=== PATIENT | male | born 2000 | race Hispanic/Latino ===

== ENCOUNTER 2023-04-18 23:13 | Emergency (ER) | payer SELFPAY ==
[~2023-04-18] VITALS: Ht 167.6 cm; Wt 142.4 kg
[~2023-04-18 23:13] MED LIST: CIPRO500 MG PO; METRONIDAZOLE500 MG PO; ONDANSETRON ODT4 MG SL
[2023-04-18] MEDS ORDERED: VENTOLIN HFA18 GM INH (23:51)
[2023-04-18] MEDS ORDERED: DIPHENHYDRAMINE25 MG PO (23:51)
[2023-04-18] MEDS ORDERED: AZITHROMYCIN250 MG PO (23:51)
[2023-04-18] MEDS ORDERED: NASACORT16.9 ML (23:51)
[2023-04-19 00:08] VITALS: BP 160/87; PULSE 87; RESP 18; TEMP 97.5; O2SAT 100
== END 2023-04-19 00:08 | disposition home or self-care (01) ==
LOC: FSED 23:16
DX: R06.02 Shortness of breath (principal); G47.33 Obstructive sleep apnea (adult) (pediatric); J30.9 Allergic rhinitis, unspecified; R19.7 Diarrhea, unspecified; Z11.52 Encounter for screening for COVID-19
CPT/HCPCS: 0223U; 71046; 83518; 87400; 99283

== ENCOUNTER 2023-10-31 23:59 | Emergency (ER) | payer SELFPAY ==
[~2023-10-31] VITALS: Ht 167.6 cm; Wt 127.0 kg
[~2023-10-31 23:59] MED LIST changes: +AZITHROMYCIN250 MG PO; +DIPHENHYDRAMINE25 MG PO; +NASACORT16.9 ML; +VENTOLIN HFA18 GM INH
[2023-11-01 00:10] VITALS: PULSE 97; RESP 20; TEMP 98.7; O2SAT 100
[2023-11-01] MEDS ORDERED: PREDNISONE20 MG PO (00:18)
[2023-11-02] MEDS ORDERED: ULTRAM 50MG50 MG PO (22:17)
== END 2023-11-01 00:40 | disposition home or self-care (01) ==
LOC: ER 11-01 00:16
DX: R21 Rash and other nonspecific skin eruption (principal); S90.822A Blister (nonthermal), left foot, initial encounter; S90.821A Blister (nonthermal), right foot, initial encounter; I10 Essential (primary) hypertension; Z85.72 Personal history of non-Hodgkin lymphomas
CPT/HCPCS: 36415; 82948; 99283

== ENCOUNTER 2023-11-02 21:47 | Emergency (ER) | payer SELFPAY ==
[~2023-11-02] VITALS: Ht 167.6 cm; Wt 127.0 kg
[~2023-11-02 21:47] MED LIST changes: +PREDNISONE20 MG PO
[2023-11-02 21:52] VITALS: PULSE 91; RESP 16; TEMP 98.7; O2SAT 100
[2023-11-02] MEDS ORDERED: LIDOCAINE 1% 10 ML MULTIDOSE VIAL IJ ONE (21:58)
[2023-11-02] MEDS: LIDOCAINE HCL 1% LOCAL INJ 20 ML VIAL INJ STA (22:10)
[2023-11-02] MEDS ORDERED: ULTRAM 50MG50 MG PO (22:17)
== END 2023-11-02 22:45 | disposition home or self-care (01) ==
LOC: ER 21:50
DX: S62.326A Displaced fracture of shaft of fifth metacarpal bone, right hand, initial encounter for closed fracture (principal); X50.1XXA Overexertion from prolonged static or awkward postures, initial encounter; Y93.01 Activity, walking, marching and hiking; Y92.89 Other specified places as the place of occurrence of the external cause; I10 Essential (primary) hypertension; Z85.72 Personal history of non-Hodgkin lymphomas
CPT/HCPCS: 99283

== ENCOUNTER 2024-05-02 14:35 | Emergency (ER) | payer SELFPAY ==
[~2024-05-02] VITALS: Ht 167.6 cm; Wt 120.4 kg
[~2024-05-02 14:35] MED LIST changes: +EPINEPHRIN0.3 MG/0.3 IM; +ULTRAM 50MG50 MG PO
[2024-05-02 14:40] VITALS: PULSE 94; RESP 18; TEMP 98.8
[2024-05-02] MEDS: IBUPROFEN 400 MG TAB PO ONE (15:15)
[2024-05-02 16:42] VITALS: BP 167/101; PULSE 65; RESP 18; TEMP 98.1; O2SAT 99
== END 2024-05-02 16:40 | disposition home or self-care (01) ==
LOC: FSED 14:39
DX: S60.222A Contusion of left hand, initial encounter (principal); W22.09XA Striking against other stationary object, initial encounter; Y93.89 Activity, other specified; Y92.488 Other paved roadways as the place of occurrence of the external cause; I10 Essential (primary) hypertension; Z85.72 Personal history of non-Hodgkin lymphomas
CPT/HCPCS: 99284

== ENCOUNTER 2024-10-01 21:01 | Emergency (ER) | payer SELFPAY ==
[~2024-10-01] VITALS: Ht 167.6 cm; Wt 116.1 kg
[2024-10-01 21:11] VITALS: PULSE 89; RESP 18; TEMP 99.2
[2024-10-01] MEDS: ACETAMINOPHEN 325 MG TAB PO ONE (21:47)
[2024-10-01] MEDS: ONDANSETRON HCL 4 MG ORAL DISINTEGRATING TAB PO ONE (21:47)
[2024-10-01] MEDS: IBUPROFEN 200 MG TAB PO ONE (21:48)
[2024-10-01] MEDS ORDERED: IBUPROFEN600 MG PO (22:30)
[2024-10-01] MEDS ORDERED: DIPHENHYDRAMINE25 M2 PO (22:30)
[2024-10-01 23:09] VITALS: BP 137/91; PULSE 88; RESP 18; TEMP 98.8; O2SAT 100
== END 2024-10-01 23:09 | disposition home or self-care (01) ==
LOC: FSED 21:07
DX: R51.9 Headache, unspecified (principal); R09.81 Nasal congestion; C85.9A Non-Hodgkin lymphoma, unspecified, in remission; I10 Essential (primary) hypertension
CPT/HCPCS: 70450; 99283; Q0162